=== PATIENT | female | born 1965 | race Caucasian/White ===

== ENCOUNTER 2023-04-14 04:11 | Day surgery (SDC) | payer BC, SELFPAY ==
[2023-04-03 11:27] VITALS: BMI 30.4
[2023-04-14 06:18] VITALS: BP 115/81; PULSE 64; RESP 18; TEMP 35.8; O2SAT 94; BMI 29.5
[2023-04-14] MEDS: LACTATED RINGERS 1,000 ML 150 ML IV CONT (06:31)
--- NOTE | 2023-04-14 07:24 | WPDANESEPPF ---
Anes - Initial Pre Proc Eval Procedure: Operation Date: 04/14/23 07:30 Proposed Procedures p Screening Colonoscopy - Giacomo Conley MD Date/Time: 04/14/23 07:24 Surgeon: Giacomo Conley MD Pre Op Diagnosis: neoplasm screening Patient Data Age: 57 Gender: F Height: 1.73 m Weight: 88 kg Last Vital Signs Temp 96.5 F L 04/14/23 06:18 Pulse 64 04/14/23 06:18 Resp 18 04/14/23 06:18 BP 115/81 04/14/23 06:18 Pulse Ox 94 04/14/23 06:18 O2 Del Method Room Air 04/14/23 06:18 Allergies Allergy/AdvReac Type Severity Reaction Status Date / Time No Known Allergies Allergy Mild Verified 04/03/23 11:26 Home Medications Medication Instructions Recorded Confirmed Type atorvastatin 40 mg tablet 40 mg PO DAILY #90 tabs 12/30/22 04/03/23 Rx lisinopril 20 mg tablet 20 mg PO DAILY #90 tabs 12/30/22 04/03/23 Rx meloxicam 15 mg tablet 15 mg PO DAILY #30 tabs 12/30/22 04/03/23 Rx omeprazole 20 mg capsule,delayed 20 mg PO DAILY #90 caps 12/30/22 04/03/23 Rx release aspirin 325 mg tablet 325 mg PO DAILY 04/03/23 04/14/23 History Patient hx anesthesia problems: none Family hx anesthesia problems: none Results Review: All pre-operative results and documents have been reviewed as part of the pre-operative evaluation. [facility] Past Medical History Medical History (Updated 01/02/23 @ 11:14 by DUNCAN Melton) Anxiety Depression GERD (gastroesophageal reflux disease) History of CVA (cerebrovascular accident) Hyperlipidemia Hypertension Social History Social History (Updated 12/30/22 @ 13:12 by Soo Gould MA) Smoking packs per day: 0.25 Smoking cigarettes per day: 5.0 Years smoked: 5 Smoking pack-years: 1.25 Smoking status: Current every day smoker Tobacco type: cigarettes Alcohol intake: current Drinks per week: 5 Substance use: never Substance use type: does not use Lack of Transportation: No Lack of Food: Never True Current Housing: I Have Housing Concerned About Future Housing: No Difficulty Paying Gas/Electric Bills: No Difficulty Paying for Meds: No Currently Unemployed: No Education: High School Diploma/GED Difficulty w/ Childcare or Family Care: No Living arrangements: with family Occupation/Education: occupation Gender identity (if verbalized by the patient): Female Sexual Orientation (if Verbalized by the Patient): Straight or Heterosexual Spiritual care concerns: No Anes - Eval Final PreProcedure Day of Procedure 04/14/23 07:24 Patient weight: normal Heart: regular rate and rhythm Lungs: clear to auscultation Airway: Mallampati scale class II Neurological: alert and oriented Last oral intake: >/= 8 hours ASA classification: III Emergent: no Anesthetic plan: proceed Anesthesia type and monitoring: general GIVS and standard monitoring Results Review: All pre-operative results and documents have been reviewed as part of the pre-operative evaluation. Informed Consent: The patient's anesthetic plan and its attendant risks and benefits were discussed with the patient/family/POA. Questions were solicited and answers provided to the satisfaction of the patient/family/POA.
--- NOTE | 2023-04-14 07:26 | PM.HPGS ---
History of Present Illness History of Present Illness Consent: Risks, benefits, and alternatives have been discussed and questions answered. Patient agrees to proceed with procedure. Chief complaint: neoplasm screening Narrative: Alania Nixon is a 57 year old female here for first colonoscopy, had + cologuard Review of Systems Constitutional: Constitutional: Denies headache(s) and Denies weakness Eyes: Eyes: Denies blurry vision ENT: Reports Normal hearing present, Denies headache(s) and Denies neck pain Cardiovascular: Cardiovascular: Denies chest pain and Denies dyspnea Respiratory: Respiratory: Denies dyspnea Gastrointestinal: Gastrointestinal: Reports no additional gastrointestinal complaints Genitourinary: Genitourinary: Denies dysuria Musculoskeletal: Musculoskeletal: Denies neck pain Integumentary/Breasts: Skin/Breast: Denies dry skin Neurologic: Reports Normal hearing present, Denies headache(s) and Denies weakness Psychiatric: Psychiatric: Denies anxiety Endocrine: Endocrine: Denies change in body appearance Hematologic/Lymphatic: Hematologic/Lymphatic: Denies easy bleeding Allergic/Immunologic: Allergic/Immunologic: Denies urticaria PMFSH Past Medical History Medical History (Updated 04/14/23 @ 07:26 by Giacomo Conley MD) Anxiety Depression GERD (gastroesophageal reflux disease) History of CVA (cerebrovascular accident) Hyperlipidemia Hypertension Positive colorectal cancer screening using Cologuard test Social History Social History (Updated 12/30/22 @ 13:12 by Soo Gould MA) Smoking packs per day: 0.25 Smoking cigarettes per day: 5.0 Years smoked: 5 Smoking pack-years: 1.25 Smoking status: Current every day smoker Tobacco type: cigarettes Alcohol intake: current Drinks per week: 5 Substance use: never Substance use type: does not use Lack of Transportation: No Lack of Food: Never True Current Housing: I Have Housing Concerned About Future Housing: No Difficulty Paying Gas/Electric Bills: No Difficulty Paying for Meds: No Currently Unemployed: No Education: High School Diploma/GED Difficulty w/ Childcare or Family Care: No Living arrangements: with family Occupation/Education: occupation Gender identity (if verbalized by the patient): Female Sexual Orientation (if Verbalized by the Patient): Straight or Heterosexual Spiritual care concerns: No Meds Home Medications and Allergies Home Medications Medication Instructions Recorded Confirmed Type atorvastatin 40 mg tablet 40 mg PO DAILY #90 tabs 12/30/22 04/03/23 Rx lisinopril 20 mg tablet 20 mg PO DAILY #90 tabs 12/30/22 04/03/23 Rx meloxicam 15 mg tablet 15 mg PO DAILY #30 tabs 12/30/22 04/03/23 Rx omeprazole 20 mg capsule,delayed 20 mg PO DAILY #90 caps 12/30/22 04/03/23 Rx release aspirin 325 mg tablet 325 mg PO DAILY 04/03/23 04/14/23 History Allergies Allergy/AdvReac Type Severity Reaction Status Date / Time No Known Allergies Allergy Mild Verified 04/03/23 11:26 Vital Signs Vital Signs - 24 hr 04/14/23 06:18 Temperature 96.5 F L Pulse Rate 64 Respiratory Rate 18 Blood Pressure 115/81 Pulse Oximetry 94 Oxygen Delivery Room Air Exam Const: General: comfortable and no acute distress HENMT: Face/Nose/Sinus: Normal nares present Eyes: General: appearance normal, both eyes and all related structures Neck: Neck: no JVD Resp: Auscultation: clear to auscultation bilaterally Cardio: Rate: regular rate Rhythm: regular rhythm GI: Inspection: non-distended GI Palp: Yes Soft to palpation Skin: General skin exam: normal color Neuro: General: gait normal Speech: normal speech Extrem: General: normal to inspection Psych: Mental Status: mental status grossly normal Assessment and Plan Assessment and plan (1) Positive colorectal cancer screening using Cologuard test: Code(s): R19.5 - Other fecal abnormalit
[2023-04-14 07:49] VITALS: BP 101/62; PULSE 54; RESP 18; O2SAT 98
[2023-04-14 07:59] VITALS: BP 115/76; PULSE 52; RESP 16; O2SAT 100
[2023-04-14 08:09] VITALS: BP 115/75; PULSE 53; RESP 20; O2SAT 100
== END 2023-04-14 08:18 | disposition home or self-care (01) ==
PROVIDERS: PCP Physician Assistant; Visit Provider Internal Medicine Gastroenterology
PROC: 0DJD8ZZ Inspection of Lower Intestinal Tract, Via Natural or Artificial Opening Endoscopic (ICD-10-PCS; CPT 45378; principal; 2023-04-14 07:30)
DX: R19.5 Other fecal abnormalities (principal); K57.30 Diverticulosis of large intestine without perforation or abscess without bleeding; K64.8 Other hemorrhoids; I10 Essential (primary) hypertension; E78.5 Hyperlipidemia, unspecified; K21.9 Gastro-esophageal reflux disease without esophagitis; F41.9 Anxiety disorder, unspecified; F32.A Depression, unspecified; Z86.73 Personal history of transient ischemic attack (TIA), and cerebral infarction without residual deficits; Z79.82 Long term (current) use of aspirin; F17.210 Nicotine dependence, cigarettes, uncomplicated
CPT/HCPCS: 45378; J2704; J7120

== ENCOUNTER 2025-01-09 12:12 | Outpatient (CLI) | payer BC, SELFPAY ==
[2025-01-09 12:33] LABS: Hematocrit 38.4 % (37.0-47.0); Hemoglobin 12.5 g/dL (12.0-15.0); Mean Corpuscular HGB Conc 32.6 g/dl (32-36); Mean Corpuscular Hemoglobin 30.9 pg (26-34); Mean Corpuscular Volume 94.8 fl (80-100); Mean Platelet Volume 11.3 fl (7.4-10.4); Platelet Count Result 240 k/mm3 (150-375); Red Blood Count 4.05 M/mm3 (4.2-5.4); White Blood Count 6.5 K/mm3 (4.5-10.0)
--- OUTSIDE RECORDS SUMMARY | 2025-01-09 12:40 | XMS_ITS | Clinical Summary ---
Author Organization [facility] Address [address] [place] [address] Care Team Providers Care Rn Supplemental Name Role Phone Pelon Segovia MD Unavailable [phone] Lenny Monterroso MD Primary Care Provider [phone] Lisbet Davis OT Unavailable Unavailabl e Allergies No known active allergies Medications buPROPion XL (WELLBUTRIN XL) 150 mg 24 hr tablet Take 150 mg by mouth nightly. Active lisinopril (PRINIVIL,ZESTR IL) 20 mg tablet Take 20 mg by mouth nightly. Active omeprazole (PriLOSEC) 20 mg capsule Take 20 mg by mouth nightly. Active ALPRAZolam (XANAX) 0.25 mg tablet Take 0.25 mg by mouth nightly as needed for anxiety. Active aspirin 325 mg EC tabletIndicatio ns:cerebral ischemia Take 1 tablet (325 mg total) by mouth daily. 01/01/2018 Active atorvastatin (LIPITOR) 20 mg tabletIndicatio ns:hyperlipidem ia Take 1 tablet (20 mg total) by mouth nightly. 12/31/2017 Active valACYclovir (VALTREX) 500 mg tablet Take 500 mg by mouth 2 (two) times a day. Active Active Problems Problem Noted Date Diagnosed Date Anxiety 09/11/2018 Assessment & Plan (09/11/2018 5:14 PM COLOR DRUM WORKER): Wellbutrin XL 150 mg daily Alprazolam 0.25 mg p.r.n. Right thalamic infarction 12/31/2017 Assessment & Plan (09/11/2018 5:14 PM COLOR DRUM WORKER): Acute left hemisensory loss affecting face, arm, torso, and leg. Patient at stopped her hypertensive medications approximately 1 month before onset of her stroke. She is also at risk since she has had a history of mostly weekend smoking for 10 years. Aspirin 325 mg daily Lipitor 20 mg daily Occupational therapy for cognitive impairment including concentration difficulties. Signs of stroke were discussed. Importance of urgent evaluation in the emergency room for possible tPA reviewed. Assessment & Plan (02/16/2018 11:57 AM CDT): Acute left hemisensory loss affecting face, arm, torso, and leg. Clinically improved. Patient at stopped her hypertensive medications approximately 1 month before onset of her symptoms. She is also at risk since she has had a history of mostly weekend smoking for 10 years. Aspirin 325 mg daily Lipitor 20 mg daily Adherence to treatment plan emphasized. Signs of stroke were discussed. Essential hypertension 12/29/2017 Assessment & Plan (09/11/2018 5:13 PM COLOR DRUM WORKER): Continue blood pressure control with lisinopril Exercise Assessment & Plan (02/16/2018 11:57 AM CDT): Continue blood pressure control with lisinopril Exercise and weight loss encouraged Alcohol consumption binge drinking 12/29/2017 Resolved Problems Problem Noted Date Diagnosed Date Resolved Date Left sided numbness 12/29/2017 02/17/20 18 Tobacco use 12/29/2017 02/16/2018 Medical History Medical History Date Comments Hypertension Family History Medical History Relation Name Comments Cancer Father Stroke Father Cancer Mother Heart disease Mother Relation Name Status Comments Father Mother Social History Tobacco Use Types Packs/Day Years Used Date Smoking Tobacco: Light Smoker Cigarettes Started: 12/29/2006 Smokeless Tobacco: Never Tobacco Cessation:Ready to Q uit: No Comments:5 on weekend Alcohol Use Standard Drinks/Week Comments Yes 12 (1 standard drink = 0.6 oz pu re alcohol) Personal Safety Answer Date Recorded Getting School Help Needed Not on file 12/15 Comments Unknown Sex and Gender Information Value Date Recorded Sex Assigned at Not on file Legal Sex Female 11:14 PM COLOR DRUM WORKER Gender Identity Not on file Sexual Orientation Not on file Obstetrics History Last Filed Vital Signs Vital Sign Reading Time Taken Comments Blood Pressure 108/76 09/11/2018 2:36 PM COLOR DRUM WORKER Pulse 64 09/11/2018 2:36 PM COLOR DRUM WORKER Temperature 36.5 C (97.7 F) 12/31/2017 2:00 PM CDT discharge set of vital signs Respiratory Rate 16 09/11/2018 2:36 PM COLOR DRUM WORKER Oxygen Saturation 96% 12/31/2017 2:0 0 PM CDT Inhaled Oxygen Concentration - - Weight 83.9 kg (185 lb) 09/11/2018 2:36 PM COLOR DRUM WORKER Height 172.7 cm (5' 8 ) 09/11/2018 2:36 PM COLOR DRUM WORKER Body Mass Index 28.13 09/11/2018 2:36 PM COLOR DRUM WORKER Plan of Treatment Not on file Insurance [employer] Address: [facility] [id number] [place] [address] [employer] Address: [facility] [address] [place] [address] Advance Directives For more information, please contact: [phone] * Full Code (Latest Code Status on File) Date Activated Date Inactivated Comments 12/29/2017 5:45 PM 12/31/2017 4:37 PM Care Teams Rn Supplemental Relationship Specialty Start Date End Date Lenny Monterroso MD [address] [place] [id number] PCP - General Family Medicine 02/16/18 Pelon Segovia MD [address] [facility] [address], [place] [address] Consulting Physician Neurology 12/31/17 Lisbet Davis, OT Occupational Therapist Occupational Therapy 10/10/18
--- OUTSIDE RECORDS SUMMARY | 2025-01-09 12:40 | XMS_ITS | Referral Summary ---
Author Organization [facility] Address [address] [place] [address] Care Team Providers Care Mold Press Operator Name Role Phone Pelon Segovia MD Unavailable [phone] Lenny Monterroso MD Primary Care Provider [phone] Lisbet Davis OT Unavailable Unavailabl e Allergies [...] 09/11/2018 Assessment & Plan (09/11/2018 5:14 PM TRACTOR EXPERT): Wellbutrin XL 150 mg daily Alprazolam 0.25 mg p.r.n. Right thalamic infarction 12/31/2017 Assessment & Plan (09/11/2018 5:14 PM TRACTOR EXPERT): Acute left hemisensory loss affecting face, arm, [...] 12/29/2017 Assessment & Plan (09/11/2018 5:13 PM TRACTOR EXPERT): Continue blood pressure control with lisinopril Exercise Assessment & Plan (02/16/2018 11:57 AM CDT): Continue blood pressure control with lisinopril Exercise and weight loss encouraged Alcohol consumption binge drinking 12/29/2017 Resolved Problems Problem Noted Date Diagnosed Date Resolved Date Left sided numbness 12/29/2017 02/17/20 18 Tobacco use 12/29/2017 02/16/2018 Social History Tobacco Use Types Packs/Day Years [...] on file Legal Sex Female 11:14 PM TRACTOR EXPERT Gender Identity Not on file Sexual Orientation Not on file Last Filed Vital Signs Vital Sign Reading Time Taken Comments Blood Pressure 108/76 09/11/2018 2:36 PM TRACTOR EXPERT Pulse 64 09/11/2018 2:36 PM TRACTOR EXPERT Temperature 36.5 C (97.7 F) 12/31/2017 2:00 PM CDT discharge set of vital signs Respiratory Rate 16 09/11/2018 2:36 PM TRACTOR EXPERT Oxygen Saturation 96% 12/31/2017 2:0 0 PM CDT Inhaled Oxygen Concentration - - Weight 83.9 kg (185 lb) 09/11/2018 2:36 PM TRACTOR EXPERT Height 172.7 cm (5' 8 ) 09/11/2018 2:36 PM TRACTOR EXPERT Body Mass Index 28.13 09/11/2018 2:36 PM TRACTOR EXPERT Plan of Treatment Not on file Insurance [employer] Address: [address] [place] [address] [employer] Address: [facility] [address] [place] [address] Advance Directives For more information, please contact: [phone] * Full Code (Latest Code Status on File) Date Activated Date Inactivated Comments 12/29/2017 5:45 PM 12/31/2017 4:37 PM Care Teams Mold Press Operator Relationship Specialty Start Date End Date Lenny Monterroso MD [address] [place] [id number] PCP - General Family Medicine 02/16/18 Pelon Segovia MD [address] [address] Consulting Physician Neurology 12/31/17 Lisbet Davis, OT Occupational Therapist Occupational Therapy 10/10/18
--- OUTSIDE RECORDS SUMMARY | 2025-01-09 12:40 | XMS_ITS | Clinical Summary ---
Author Organization [facility] Address [facility] [place] [address] Care Team Providers Care Veterinary Inspector Name Role Phone Md, Generic Conversion MD Primary Care Provider Unavailable Allergies No known active allergies Medications lisinopril 20 MG tablet Take 20 mg by mouth nightly. Active atorvastatin 40 MG tablet 11/30/2018 Active aspirin EC 325 MG tablet Take 325 mg by mouth nightly. 01/01/2018 Active ALPRAZolam 0.25 MG tablet Take 0.25 mg by mouth. Active buPROPion XL 150 MG 24 hr tablet Take 150 mg by mouth daily. Active omeprazole 20 MG capsule Take 20 mg by mouth daily. Active valACYclovir 500 MG tablet Take 500 mg by mouth 2 (two) times daily as needed. 1 03/03/2019 Active hydrocodone-acet aminophen 5-325 MG tabletIndication s:Acute Pain < 7 Day Supply Take 1 tablet by mouth every 6 (six) hours as needed for Pain. Indications : Acute Pain < 7 Day Supply 15 tablet 10/26/2019 Active Active Problems Problem Noted Date Diagnosed Date Appendicitis 03/11/2019 Assessment & Plan (03/12/2019 12:06 PM CDT): Acute, currently stable. WBC down to 10.8. Hemodynamically stable. Post op day#1. Tolerating PO, walking, passing urine and flatus. - Surgery consulted - Continue on Zosyn x24 hrs then d/c - NS at 120 cc/hr - tylenol, morphine for pain - monitor vitals - CBC, BMP Immunizations Name Administration Dates Next Due Tdap (Boostrix) 10/26/2019 Family History Medical History Relation Comments Cancer Father Lung Cancer Father Stroke Father Diabetes Mother Heart Disease Mother Cancer Sister Relation Status Comments Father Mother Sister Social History Tobacco Use Types Packs/Day Years Used Date Smoking Tobacco: Never Smokeless Tobacco: Never Alcohol Use Standard Drinks/Week Comments Yes 0 (1 standard drink = 0.6 oz pur e alcohol) Comments No Sex and Gender Information Value Date Recorded Sex Assigned at Female 03/11/2019 10:41 PM CDT Legal Sex Female 8:33 PM CDT Gender Identity Female 03/11/2019 10:41 PM CDT Sexual Orientation Not on file Last Filed Vital Signs Vital Sign Reading Time Taken Comments Blood Pressure 121/87 10/26/2019 6:11 PM GREENS CUTTER Pulse 68 10/26/2019 6:11 PM GREENS CUTTER Temperature 36.2 C (97.2 F) 10/26/2019 3:51 PM GREENS CUTTER Respiratory Rate 18 10/26/2019 3:51 PM GREENS CUTTER Oxygen Saturation 100% 10/26/2019 6:11 PM GREENS CUTTER Inhaled Oxygen Concentration - - Weight 94.3 kg (208 lb) 10/26/2019 3:51 PM GREENS CUTTER Height 172.7 cm (5' 8 ) 10/26/2019 3:51 PM GREENS CUTTER Body Mass Index 31.63 10/26/2019 3:51 PM GREENS CUTTER Plan of Treatment Health Maintenance Due Date Last Done Comments Cervical Cancer Screening Pa p Smear (Age 30 to 64) Every 3 Years 1967 Colorectal Cancer Screening Colonoscopy (10 Years) 1967 Annual Physical 1970 Hepatitis C 1985 Hepatitis B Vaccines (1 of 3 - 19+ 3-dose series) 1986 Cervical Cancer Screening Pa p with HPV Testing (Age 30 to 64) Every 5 Years 1997 Cervical Cancer Screening with HPV 1997 Mammogram Screening 2007 Zoster Vaccines (1 of 2) 2017 COVID-19 Vaccine (2023-2 5 season) 2024 DTaP, Tdap and Td Vaccines ( 2 - Td or Tdap) 10/26/2029 10/26/2019 Meningococcal B Vaccine Aged Out No l onger eligible based on patient's age to complete this topic Meningococcal Vaccine Aged Out No rashaun kerrie eligible based on patient's age to complete this topic Pneumococcal Vaccine: Pediat rics (0 to 5 Years) and At-Risk Patients (6 to 64 Years) Aged Out No longer eligi ble based on patient's age to complete this topic RSV Immunizations Under 20 Months Aged Out No longer eligible based on patient's age to complete this topic Insurance [employer] Advance Directives * Full Code (Latest Code Status on File) Date Activated Date Inactivated Comments 03/11/2019 10:27 PM 03/13/2019 2:41 PM * Full Code Date Activated Date Inactivated Comments 03/11/2019 8:07 PM 03/11/2019 10:27 PM Care Teams Veterinary Inspector Relationship Specialty Start Date End Date Clive Nolan MD PCP - General FAMILY PRACTICE 03/11/19
[2025-01-09 12:51] LABS: Alanine Aminotransferase 20 U/L (6-35); Albumin Level 4.7 g/dL (3.5-5.1); Alkaline Phosphatase 59 U/L (38-126); Anion Gap 9 mmol/L (4-12); Aspartate Amino Transferase 21 U/L (14-36); Bilirubin,Total 0.5 mg/dL (0.2-1.3); Blood Urea Nitrogen 17 mg/dL (7-17); Calcium 9.8 mg/dL (8.4-10.2); Carbon Dioxide 29 mmol/L (22-30); Chloride 101 mmol/L (98-107); Cholesterol 170 mg/dL (0-200); Estimated Glomerular Filt Rate > 60; Glucose 102 mg/dL (65-110); HDL Direct 56 mg/dL; Potassium 4.8 mmol/L (3.4-5.0); Sodium 139 mmol/L (137-145); Triglycerides 72 mg/dL (<150)
[2025-01-09 13:07] LABS: LDL Cholesterol Direct 84 mg/dL
[2025-01-09 13:29] LABS: Vitamin D 25 Hydroxy 58.7 ng/mL
[2025-01-09 18:25] LABS: Hemoglobin A1C 5.5 % (<5.7)
== END 2025-01-09 12:13 | disposition home or self-care (01) ==
LOC: ANHLAB 12:14
PROVIDERS: PCP Physician Assistant
DX: R53.83 Other fatigue (principal); I10 Essential (primary) hypertension; Z13.220 Encounter for screening for lipoid disorders; Z13.1 Encounter for screening for diabetes mellitus
CPT/HCPCS: 36415; 80053; 80061; 82306; 83036; 84443; 85027